=== PATIENT | male | born 1965 | race Caucasian/White ===

== ENCOUNTER 2018-03-12 08:27 | Emergency (ER) | payer BC ==
[2018-03-12 08:36] VITALS: BP 139/97
--- NOTE | 2018-03-12 09:54 | UC ---
Ear Complaint HPI - HPI Summary HPI Summary: The patient is a 52-year-old male with a one-week history of left ear pain. No URI symptoms. No fever or chills. He has been swimming recently. - History of Current Complaint Chief Complaint: UCEar Stated Complaint: EAR PAIN Time Seen by Provider: 03/12/18 09:34 Hx Obtained From: Patient Onset/Duration: Sudden Onset, Gradual Onset, Lasting Minutes Severity Initially: Mild Severity Currently: Mild Pain Intensity: 4 Pain Scale Used: 0-10 Numeric Associated Signs/Symptoms: Positive: Discharge, Hearing Loss - Allergies/Home Medications Allergies/Adverse Reactions: Allergies Allergy/AdvReac Type Severity Reaction Status Date / Time No Known Allergies Allergy Verified 03/12/18 08:36 PMH/Surg Hx/FS Hx/Imm Hx Previously Healthy: Yes - Surgical History Surgical History: None - Family History Known Family History: Positive: Hypertension, Diabetes - Social History Alcohol Use: Daily Substance Use Type: Marijuana Smoking Status (MU): Former Smoker Review of Systems Constitutional: Negative Skin: Negative Eyes: Negative ENT: Ear Ache Respiratory: Negative Cardiovascular: Negative Gastrointestinal: Negative Genitourinary: Negative Motor: Negative Neurovascular: Negative Musculoskeletal: Negative Neurological: Negative Psychological: Negative Is Patient Immunocompromised?: No All Other Systems Reviewed And Are Negative: Yes Physical Exam Triage Information Reviewed: Yes Appearance: Well-Appearing, No Pain Distress, Well-Nourished Vital Signs: Initial Vital Signs Temp 97 F 03/12/18 08:32 Pulse 76 03/12/18 08:32 Resp 15 03/12/18 08:32 BP 139/97 03/12/18 08:32 Pulse Ox 100 03/12/18 08:32 Vital Signs Reviewed: Yes ENT: Positive: TMs normal, Other - Left tragal tenderness/left EAC swollen. Negative: Hearing grossly normal, Tonsillar swelling, Tonsillar exudate, Muffled voice, Hoarse voice Dental Exam: Normal Neck exam: Normal Respiratory: Positive: Lungs clear, Normal breath sounds, No respiratory distress, No accessory muscle use Cardiovascular: Positive: RRR, No Murmur Musculoskeletal: Positive: ROM Intact, No Edema Neurological Exam: Normal Neurological: Positive: Alert Psychological Exam: Normal Skin Exam: Normal Ear Complaint Course/Dx - Differential Dx/Diagnosis Provider Diagnoses: left otitis externa Discharge - Sign-Out/Discharge Documenting (check all that apply): Discharge/Admit/Transfer - Discharge Plan Condition: Stable Disposition: HOME Prescriptions: Neomyc/Polym/HC 1% OTIC SUSP* [Cortisporin Otic Susp 1%*] 4 drop LEFT EAR QID 7 Days #1 btl Patient Education Materials: Otitis Externa (ED) Referrals: Emily Cramer MD [Primary Care Provider] - 7 Days (if not better) Additional Instructions: recheck for new or worsening symptoms - Billing Disposition and Condition Condition: STABLE Disposition: Home
== END 2018-03-12 09:52 | disposition home or self-care (01) ==
LOC: UCEAST 08:27
DX: H60.92 Unspecified otitis externa, left ear (principal); Z87.891 Personal history of nicotine dependence
CPT/HCPCS: 99211; G0463

== ENCOUNTER 2018-03-17 15:37 | Inpatient (IN) | payer BC ==
[2018-03-17] MEDS ORDERED: diPHENhydraMINE IV* 50 MG/ML 1 ml VIAL (BENADRYL) IV ONE (15:59)
[2018-03-17] MEDS ORDERED: Metoclopramide IV* 5 MG/ML 2 ML VIAL IV ONE (15:59)
[2018-03-17] MEDS ORDERED: NS 0.9% 1000 ML* 1,000 ML IV ONE (15:59)
[2018-03-17] MEDS ORDERED: Ketorolac INJ* 30 MG/ML 1 ML VIAL IV PUSH ONE (15:59)
[2018-03-17 16:24] LABS: ABS Basophils 0 10^3/ul (0-0.2); ABS Eosinophils 0 10^3/ul (0-0.6); ABS Lymphocytes 0.4 10^3/ul (1.0-4.8); ABS Monocytes 0.2 10^3/ul (0-0.8); ABS Neutrophils 2.2 10^3/ul (1.5-7.7); ABS Nucleated RBC 0 10^3/ul; Eosinophil % 0.1 % (0-6); Hematocrit 42 % (42-52); Hemoglobin 14.9 g/dl (14.0-18.0); Lymphocyte % 12.8 % (25-47); Mean Corpuscular HGB Conc 36 g/dl (31-36); Mean Corpuscular Hemoglobin 29 pg (27-31); Mean Corpuscular Volume 83 fL (80-94); Mean Platelet Volume 9.2 um3 (7.4-10.4); Nucleated Red Blood Cells % 0; Platelet Count 71 10^3/ul (150-450); Red Blood Count 5.06 10^6/ul (4.00-5.40); Red Cell Distribution Width 13 % (10.5-15); White Blood Count 2.7 10^3/ul (3.5-10.8)
[2018-03-17 16:30] LABS: EGFR Non-African American 97.3 (>60)
--- NOTE | 2018-03-17 16:51 | RAD ---
INDICATION: Fever and headache. COMPARISON: There are no prior studies available for comparison. TECHNIQUE: Contiguous axial sections of the brain were obtained from the skull base to the vertex without contrast. FINDINGS: The ventricles, cisterns and sulci are within normal limits. No significant focal abnormality or mass effect is seen. There is no evidence for hemorrhage. There is a 1 cm nodular density within the right maxillary sinus consistent with a polyp or mucous retention cyst. The visualized portion of the paranasal sinuses and mastoid air cells otherwise appear clear. IMPRESSION: NO EVIDENCE FOR ACUTE INTRACRANIAL ABNORMALITY.
--- NOTE | 2018-03-17 16:57 | RAD ---
INDICATION: Headache and fever. COMPARISON: There are no prior studies available for comparison. TECHNIQUE: Contiguous axial sections of the axial images of the sinuses were obtained and reconstructed in the coronal and sagittal planes. FINDINGS: The frontal and sphenoid sinuses appear clear. There is mild mucosal thickening within the ethmoid air cells. There is a 1 cm nodular density in the right maxillary sinus consistent with a polyp or mucous retention cyst. The ostiomeatal complexes appear patent on both sides. There is mild to moderate deviation of the nasal septum toward the right side. The nasal passageways were otherwise clear. The mastoid air cells appear clear. There is mild prominence of the tonsils bilaterally. IMPRESSION: 1. MILD MUCOSAL THICKENING WITHIN THE ETHMOID SINUSES, THE SINUSES WERE OTHERWISE CLEAR. 2. 1 CM NODULE WITHIN THE RIGHT MAXILLARY SINUS CONSISTENT WITH A POLYP OR MUCOUS RETENTION CYST. 3. NASAL SEPTAL DEVIATION.
[2018-03-17] MEDS ORDERED: Iohexol 350* (CONTRAST) 500 ML MDV IV ONE (18:01)
[2018-03-17] MEDS ORDERED: cefTRIAXone(*) 2 GM in NS 0.9% 100 ML* 100 ML IVPB ONE (18:07)
[2018-03-17] MEDS ORDERED: Morphine VIAL* 4 MG/ML VIAL (1 ml vial) IV ONE (18:07)
[2018-03-17 18:14] LABS: Urine Appearance Clear; Urine Blood 1+ (Negative); Urine Color Amber; Urine Ketones Trace (Negative); Urine Protein 2+(100 mg/dL) (Negative); Urine Specific Gravity 1.021 (1.010-1.030); Urine Urobilinogen Positive (Negative)
[2018-03-17] MEDS ORDERED: Lidocaine 2% EPI 1:200000 MPF*10-20 ML VIAL ONE (18:16)
[2018-03-17] MEDS ORDERED: Lidocaine 1%* 5 ML VIAL INJ ONE (18:16)
[2018-03-17] MEDS ORDERED: Lidocaine 1%* 5 ML VIAL ONE (18:18)
[2018-03-17] MEDS ORDERED: DOXYcycline CAP(*) 100 MG PO ONE (18:26)
[2018-03-17] MEDS ORDERED: Ondansetron INJ* 2 MG/ML VIAL IV PRN (18:40)
[2018-03-17] MEDS ORDERED: Al Hydrox/Mg Hydrox/Simet LIQ* 30 ML UDC PO PRN (18:40)
[2018-03-17] MEDS ORDERED: Acetaminophen TAB* 325 MG PO PRN (18:40)
[2018-03-17] MEDS ORDERED: Senna TAB PO PRN (18:40)
[2018-03-17] MEDS ORDERED: Docusate CAP* 100 MG PO PRN (18:40)
--- NOTE | 2018-03-17 18:52 | RAD ---
INDICATION: Headache and fever. COMPARISON: Comparison is made with a prior noncontrast CT of the brain obtained earlier today. TECHNIQUE: A CT angiogram of the head was performed following intravenous injection of 60 ml of Omnipaque 350 nonionic contrast. Contiguous axial sections were obtained from the skull base through the vertex. Images were reconstructed in the coronal and sagittal planes and in a 3-D volume rendered format. FINDINGS: CTA BRAIN: The internal carotid, anterior and middle cerebral arteries appear patent without evidence for high-grade stenosis or occlusion. There is a dominant left vertebral artery. The vertebral, basilar and posterior cerebral arteries appear patent without evidence for high-grade stenosis or occlusion. No aneurysm or vascular malformation is seen. IMPRESSION: NO EVIDENCE FOR ANEURYSM.
[2018-03-17] MEDS ORDERED: Thiamine IV* 100 MG/ML 2 ML VIAL IM ONE (18:55)
--- NOTE | 2018-03-17 19:34 | ED ---
Art Metzger Devyn, scribed for Harish Kimball MD on 03/17/18 at 1628 . Headache - HPI Summary HPI Summary: This patient is a 52 year old M presenting to [facility] with a chief complaint of intermittent, sharp headaches since 3 days ago. The patient rates the pain 10/ 10 in severity. Patient reports body aches, diaphoresis, intermittent fevers, dark urine. Patient denies rash, tick bite, sore throat, sinus pain, injury to the area, neck pain, visual problems, difficulty urinating, discharge, rash. 5 days ago the pt went to urgent care for fluid in his ear, which is still somewhat present. Pt was given drops for the fluid in his ear. Pt has taken Advil for the pain but it does not help. SHx of regular drinking, denies smoking. No FHx of migraines. - History Of Current Complaint Chief Complaint: EDHeadache Stated Complaint: FEVER/HEADACHE Time Seen by Provider: 03/17/18 15:43 Hx Obtained From: Patient Onset/Duration: Started days ago - 3 days ago, Still Present Initially Headache Was: Severe Currently Pain Is: Mild Timing: Intermittent, Lasting: - hours Character: Sharp Location of Headache: Other: - right side - Allergies/Home Medications Allergies/Adverse Reactions: Allergies Allergy/AdvReac Type Severity Reaction Status Date / Time No Known Allergies Allergy Verified 03/17/18 15:40 PMH/Surg Hx/FS Hx/Imm Hx History: Denies: Hx Dialysis Neurological History: Denies: Hx Migraine Infectious Disease History: No Infectious Disease History: Denies: Traveled Outside the [place] in Last 30 Days - Family History Known Family History: Positive: Hypertension, Diabetes Negative: Other - migraines - Social History Alcohol Use: Daily Alcohol Amount: 2 glassess of wine 5x weekly Substance Use Type: Reports: Marijuana Hx Tobacco Use: No Smoking Status (MU): Former Smoker Review of Systems Positive: Fever, Skin Diaphoresis, Other - aches Positive: Other - some fluid in right ear. Negative: Sore Throat Positive: other - dark urine. Negative: dysuria, hematuria Negative: Rash Positive: Headache All Other Systems Reviewed And Are Negative: Yes Physical Exam - Summary Physical Exam Summary: Appearance: Well appearing, no pain distress Skin: warm, dry, reflects adequate perfusion Head/face: nontender temporal arteries Eyes: EOMI, [place] ENT: exudate on the left ear. No mastoid redness, tenderness. Right ear normal. Globes soft, throat clear. Neck: supple, non-tender Respiratory: CTA, breath sounds present Cardiovascular: RRR, pulses symmetrical. No temporal artery tenderness. Abdomen: non-tender, soft Bowel Sounds: present Musculoskeletal: normal, strength/ROM intact Neuro: normal, sensory motor intact, A&Ox3 Triage Information Reviewed: Yes Vital Signs On Initial Exam: Initial Vitals Temp Pulse Resp BP Pulse Ox 98.0 F 93 17 133/84 99 03/17/18 15:38 03/17/18 15:38 03/17/18 15:38 03/17/18 15:38 03/17/18 15:38 Vital Signs Reviewed: Yes Procedures - Lumbar Puncture Lumbosacral Joint Position: Sitting Aseptic Technique: Lidocaine Anesthesia Used: 1.0% Lido Spinal Needle Used: 22 Gauge - L3 L4 Lumbar Puncture Note: L4 L5. Fluid was clear. Dressed with a bandaid. 6 cc of CSF. Diagnostics - Vital Signs Vital Signs Temp Pulse Resp BP Pulse Ox 03/17/18 15:38 98.0 F 93 17 133/84 99 - Laboratory Lab Results: Lab Results 03/17/18 03/17/18 03/17/18 Range/Units 16:09 16:09 17:07 WBC 2.7 L (3.5-10.8) 10^3/ul RBC 5.06 (4.00-5.40) 10^6/ul Hgb 14.9 (14.0-18.0) g/dl Hct 42 (42-52) % MCV 83 (80-94) fL MCH 29 (27-31) pg MCHC 36 (31-36) g/dl RDW 13 (10.5-15) % Plt Count 71 L (150-450) 10^3/ul MPV 9.2 (7.4-10.4) um3 Neut % (Auto) 79.1 (38-83) % Lymph % (Auto) 12.8 L (25-47) % [place] % (Auto) 7.6 H (0-7) % Eos % (Auto) 0.1 (0-6) % Baso % (Auto) 0.4 (0-2) % Absolute Neuts (auto) 2.2 (1.5-7.7) 10^3/ul Absolute Lymphs (auto) 0.4 L (1.0-4.8) 10^3/ul Absolute Monos (auto) 0.2 (0-0.8) 10^3/ul Absolute Eos (auto) 0 (0-0.6) 10^3/ul Absolute Basos (auto) 0 (0-0.2) 10^3/ul Absolute Nucleated RBC 0 10^3/ul Nucleated RBC % 0 Hem Pathologist Commnt Pending Sodium 136 (135-145) mmol/L Potassium 3.6 (3.5-5.0) mmol/L Chloride 104 (101-111) mmol/L Carbon Dioxide 24 (22-32) mmol/L Anion Gap 8 (2-11) mmol/L BUN 12 (6-24) mg/dL Creatinine 0.83 (0.67-1.17) mg/dL Est GFR ( Amer) 117.7 (>60) Est GFR (Non-Af Amer) 97.3 (>60) BUN/Creatinine Ratio 14.5 (8-20) Glucose 109 H (70-100) mg/dL Calcium 8.3 L (8.6-10.3) mg/dL Total Bilirubin 1.00 (0.2-1.0) mg/dL Direct Bilirubin 0.30 H (0.03-0.18) mg/dL Indirect Bilirubin 0.7 (0.3-1.0) mg/dL AST 74 H (13-39) U/L ALT 60 H (7-52) U/L Alkaline Phosphatase 105 H (34-104) U/L Total Creatine Kinase 241 H (10-223) U/L C-Reactive Protein 136.95 H (<8.01) mg/L Total Protein 5.8 L (6.4-8.9) g/dL Albumin 3.4 (3.2-5.2) g/dL Globulin 2.4 (2-4) g/dL Albumin/Globulin Ratio 1.4 (1-3) Urine Color Urine Appearance Urine pH (5-9) Ur Specific [place] (1.010-1.030) Urine Protein (Negative) Urine Ketones (Negative) Urine Blood (Negative) Urine Nitrate (Negative) Urine Bilirubin (Negative) Urine Urobilinogen (Negative) Ur Leukocyte Esterase (Negative) Urine WBC (Auto) (Absent) Urine RBC (Auto) (Absent) Urine Bacteria (Absent) Urine Glucose (Negative) CSF Glucose CSF Total Protein (15-45) mg/dL Influenza A (Rapid) Negative (Negative) Influenza B (Rapid) Negative (Negative) 03/17/18 03/17/18 Range/Units 18:00 19:05 WBC (3.5-10.8) 10^3/ul RBC (4.00-5.40) 10^6/ul Hgb (14.0-18.0) g/dl Hct (42-52) % MCV (80-94) fL MCH (27-31) pg MCHC (31-36) g/dl RDW (10.5-15) % Plt Count (150-450) 10^3/ul MPV (7.4-10.4) um3 Neut % (Auto) (38-83) % Lymph % (Auto) (25-47) % [place] % (Auto) (0-7) % Eos % (Auto) (0-6) % Baso % (Auto) (0-2) % Absolute Neuts (auto) (1.5-7.7) 10^3/ul Absolute Lymphs (auto) (1.0-4.8) 10^3/ul Absolute Monos (auto) (0-0.8) 10^3/ul Absolute Eos (auto) (0-0.6) 10^3/ul Absolute Basos (auto) (0-0.2) 10^3/ul Absolute Nucleated RBC 10^3/ul Nucleated RBC % Hem Pathologist Commnt Sodium (135-145) mmol/L Potassium (3.5-5.0) mmol/L Chloride (101-111) mmol/L Carbon Dioxide (22-32) mmol/L Anion Gap (2-11) mmol/L BUN (6-24) mg/dL Creatinine (0.67-1.17) mg/dL Est GFR ( Amer) (>60) Est GFR (Non-Af Amer) (>60) BUN/Creatinine Ratio (8-20) Glucose (70-100) mg/dL Calcium (8.6-10.3) mg/dL Total Bilirubin (0.2-1.0) mg/dL Direct Bilirubin (0.03-0.18) mg/dL Indirect Bilirubin (0.3-1.0) mg/dL AST (13-39) U/L ALT (7-52) U/L Alkaline Phosphatase (34-104) U/L Total Creatine Kinase (10-223) U/L C-Reactive Protein (<8.01) mg/L Total Protein (6.4-8.9) g/dL Albumin (3.2-5.2) g/dL Globulin (2-4) g/dL Albumin/Globulin Ratio (1-3) Urine Color [place] Urine Appearance Clear Urine pH 5.0 (5-9) Ur Specific [place] 1.021 (1.010-1.030) Urine Protein 2+(100 mg/dl) A (Negative) Urine Ketones Trace A (Negative) Urine Blood 1+ A (Negative) Urine Nitrate Negative (Negative) Urine Bilirubin Negative (Negative) Urine Urobilinogen Positive A (Negative) Ur Leukocyte Esterase Negative (Negative) Urine WBC (Auto) 1+(6-10/hpf) A (Absent) Urine RBC (Auto) 2+(6-10/hpf) A (Absent) Urine Bacteria Absent (Absent) Urine Glucose Negative (Negative) CSF Glucose Pending CSF Total Protein 41 (15-45) mg/dL Influenza A (Rapid) (Negative) Influenza B (Rapid) (Negative) Result Diagrams: 03/17/18 16:09 03/17/18 16:09 Lab Statement: Any lab studies that have been ordered have been reviewed, and results considered in the medical decision making process. - CT Sinuses CT Interpretation Completed By: Radiologist - IMPRESSION: 1. MILD MUCOSAL THICKENING WITHIN THE ETHMOID SINUSES, THE SINUSES WERE OTHERWISE CLEAR. 2. 1 CM NODULE WITHIN THE RIGHT MAXILLARY SINUS CONSISTENT WITH A POLYP OR MUCOUS RETENTION CYST. 3. NASAL SEPTAL DEVIATION. ER Physician reviewed this report Brain CT Interpretation Completed By: Radiologist - IMPRESSION: NO EVIDENCE FOR ACUTE INTRACRANIAL ABNORMALITY. ER Physician reviewed this report. Head CT Interpretation Completed By: Radiologist - IMPRESSION: NO EVIDENCE FOR ANEURYSM. ER Physician reviewed this report. Headache Course/Dx - Course Course Of Treatment: Patient presents with splitting headache and history of fevers. No objectively measured temperature. No temperature here. Wbc, platelets low and LFTs elevated. Possible tickborne illness to include ehrlichiosis. CT brain, sinuses negative. Concern for bleeding so CTA was performed. A lumbar puncture was performed after that. Fluid returned cleared. Discussed with hospitalist who evaluated in the ER and will admit. - Diagnoses Differential Diagnosis/HQI/PQRI: Other - Encephalitis/meningitis, tickborne illness, occult sepsis, bacteremia, venous sinus thrombosis, sinusitis, subarachnoid hemorrhage Provider Diagnoses: Headache, Thrombocytopenia, Encephalitis - Physician Notifications Discussed Care Of Patient With: Linnea Neves Time Discussed With Above Provider: 17:55 Instructed by Provider To: Admit As Inpatient - Critical Care Time Critical Care Time: 30-74 min - CCT is EXCLUSIVE of separately billable procedures. Discharge - Sign-Out/Discharge Documenting (check all that apply): Discharge/Admit/Transfer - admit - Discharge Plan Condition: Fair Disposition: ADMITTED TO [facility] - Billing Disposition and Condition Condition: FAIR Disposition: Admitted to [facility] The documentation as recorded by the Art bustos Devyn accurately reflects the service I personally performed and the decisions made by Rehana choudhary Kirk, MD.
--- NOTE | 2018-03-17 20:08 | HP ---
CC: Emily Cramer MD * HISTORY AND PHYSICAL: DATE OF ADMISSION: 03/17/18 TIME OF EVALUATION: 1800. PRIMARY CARE PHYSICIAN: Emily Cramer MD CHIEF COMPLAINT: Fever and headache. HISTORY OF PRESENT ILLNESS: This is a 52-year-old male with an unremarkable past medical history, who presents to the emergency room with several days of headache and fever. The patient states he was diagnosed with swimmer's ear when he was seen in Urgent Care on 03/12/18. He was diagnosed with an ear infection and was given antibiotic drops. His symptoms seemed to have improved ; however, on , 03/14/18, the patient developed right-sided headache with fever, chills, sweating. He states his headache comes and goes, but when it comes, it is a throbbing right- sided headache. Tylenol and ibuprofen gave it some relief. Nothing seems to make it worse. He denies any rash. No worsening joint pain. No shortness of breath. No nausea, vomiting, diarrhea. No cough or abdominal pain. No urinary symptoms. As mentioned, his ear pain seems to have improved. He has no known history of a tick bite, but he does work as a chemist physical. No recent travel. He went to [place] back in October. No recent antibiotic use other than the antibiotic drops for his ear. Otherwise , review of systems is negative. In the emergency room, the patient had labs, imaging. He was given a liter of fluids, morphine 4 mg, Reglan, Toradol, and ceftriaxone 2 g and was referred to the hospitalist service for further evaluation. PAST MEDICAL HISTORY: Unremarkable. MEDICATIONS: The patient has been prescribed Cortisporin Otic suspension 1% four drops to the left ear 4 times a day. ALLERGIES: No known drug allergies. FAMILY HISTORY: Reviewed and noncontributory. 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 He has no history of smoking. He does drink about three-fourths of a bottle 4 to 5 nights per week. Occasional marijuana use. His healthcare proxy is his sister, Ashley Holguin. CODE STATUS: Full code. REVIEW OF SYSTEMS: A 14-point review of systems as mentioned in the HPI, otherwise negative. PHYSICAL EXAMINATION GENERAL: No acute distress, resting comfortably with his friend at the bedside. VITAL SIGNS: Temp 98, pulse rate 88, respiratory rate 18, oxygen saturation 98 % on room air, blood pressure 154/92. HEENT: Head: Normocephalic. The patient does not have any reproducible head tenderness. Pupils are equal and reactive, anicteric. Oropharynx: Mucous membranes are moist. Ears: Bilateral TMs unremarkable and external canals unremarkable. No mastoid tenderness. NECK: Supple. No nuchal rigidity. No tenderness. RESPIRATORY: Clear to auscultation. No wheezing, rhonchi, or rales. CARDIAC: Regular rate and rhythm. Soft systolic murmur heard throughout. ABDOMEN: Soft, nontender, nondistended. EXTREMITIES: No clubbing, cyanosis, or edema. +2 DPs. NEUROLOGICAL: Alert and oriented x3. No gross focal neurologic deficits. DERM: No lesions or rashes noted. DIAGNOSTIC STUDIES/LAB DATA: White count 2.7, hemoglobin 14.9, hematocrit 42, platelets 71. Sodium 136, potassium 3.6, chloride 104, bicarb 24, BUN 12, creatinine 0.83, glucose 109, calcium 8.3. AST 74, ALT 60, alk phos 105. Total CK 241. CRP 176. Urine shows trace ketones with some blood. Negative flu. Head CT: No evidence for acute intracranial abnormality. Sinuses CT shows mild mucosal thickening with ethmoid sinus, the sinuses were otherwise clear. A 1-cm nodule within the right maxillary sinus consistent with a polyp or mucous retention cyst, nasal septal deviation. Head CTA pending. ASSESSMENT AND PLAN: This is a 52-year-old male with an unremarkable past medical history, who presents to the emergency room with 4 days of fever and right-sided headache. 1. Fever and right-sided headache. The patient's history and physical are concerning for tick-borne disease with his lab findings as well. 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 Dr. Kimball is planning to do a lumbar puncture. Plan: We will order blood cultures, add on a tick-borne panel, cannot rule out ehrlichiosis as well, and follow up on the cerebrospinal fluid. We will add doxycycline in addition to ceftriaxone. If there is concern with his cerebrospinal fluid, we will add vancomycin, but given the presentation, less likely bacterial meningitis in the absence of nuchal rigidity and no leukocytosis or actual documented fever here in the emergency room. Consider Infectious Disease consultation. 2. Alcohol use. The patient drinks three-quarters of a bottle of wine 4 to 5 nights per [address] We will place him on the [facility] protocol for now. FEN: Regular diet. DVT prophylaxis: The patient scores moderate risk. We will place him on heparin subcu t.i.d. Code status: Full Code PATIENT TIME: Greater than 45 minutes was spent doing history and physical, more than half the time was spent in direct patient contact. [id number]/[facility] #: [id number] JOSE
[2018-03-17] MEDS: HYDROcodone/ACETAMIN 5-325 MG* 1 TAB PO PRN (21:13)
[2018-03-17] MEDS: Heparin VIAL(*) 5000 UNITS/ML VIAL (FIVE THOUSAND) SUBCUT SCH (21:14)
[2018-03-17] MEDS: NS 0.9% 1000 ML* 1,000 ML IV SCH (21:17)
[2018-03-17] MEDS: Ketorolac INJ* 30 MG/ML 1 ML VIAL IV PUSH PRN (22:16)
[2018-03-18] MEDS: DOXYcycline CAP(*) 100 MG PO SCH ×2 (05:26→07:30)
[2018-03-18] MEDS: NS 0.9% 1000 ML* 1,000 ML IV SCH (05:27)
[2018-03-18] MEDS: Heparin VIAL(*) 5000 UNITS/ML VIAL (FIVE THOUSAND) SUBCUT SCH ×2 (05:30→13:17)
[2018-03-18] MEDS: HYDROcodone/ACETAMIN 5-325 MG* 1 TAB PO PRN (05:30)
[2018-03-18 06:07] LABS: EGFR Non-African American 83.3 (>60)
[2018-03-18 06:10] LABS: ABS Basophils 0 10^3/ul (0-0.2); ABS Eosinophils 0 10^3/ul (0-0.6); ABS Lymphocytes 0.6 10^3/ul (1.0-4.8); ABS Monocytes 0.4 10^3/ul (0-0.8); ABS Neutrophils 1.3 10^3/ul (1.5-7.7); ABS Nucleated RBC 0 10^3/ul; Hematocrit 39 % (42-52); Hemoglobin 13.5 g/dl (14.0-18.0); Mean Corpuscular HGB Conc 35 g/dl (31-36); Mean Corpuscular Hemoglobin 29 pg (27-31); Mean Corpuscular Volume 84 fL (80-94); Mean Platelet Volume 9.5 um3 (7.4-10.4); Platelet Count 65 10^3/ul (150-450); Red Blood Count 4.66 10^6/ul (4.00-5.40); Red Cell Distribution Width 13 % (10.5-15); White Blood Count 2.3 10^3/ul (3.5-10.8)
[2018-03-18] MEDS ORDERED: cefTRIAXone(*) 2 GM in NS 0.9% 100 ML* 100 ML IVPB SCH (06:30)
[2018-03-18 06:45] LABS: ABS Neutrophils 1.1 10^3/ul (1.5-7.7); Monocytes % 12 % (0-7)
[2018-03-18] MEDS ORDERED: Folic Acid TAB* 1 MG PO SCH (09:00)
[2018-03-18] MEDS ORDERED: Thiamine TAB* 100 MG TAB PO SCH (09:00)
[2018-03-18] MEDS ORDERED: Multivitamins/Minerals TAB PO SCH (09:00)
--- NOTE | 2018-03-18 11:54 | CONS ---
DATE OF CONSULTATION: 03/18/2018. REQUESTING PHYSICIAN: Dr. Nair. CONSULTING SERVICE: Infectious Disease. REASON FOR CONSULTATION: Fever, leukopenia. IMPRESSION: Acute onset of fever, severe headache, leukopenia, thrombocytopenia , transaminitis. Lumbar puncture shows no white cells. This time of year, considering his outdoor exposure, anaplasmosis is the most common etiology. Other infections including viral are considerations, but much less likely. He has no rash to suggest Lyme. He is feeling much better on Doxycycline. RECOMMENDATIONS: Doxycycline 100 mg by mouth twice a day for 14 days. He has had a tick PCR panel sent which included anaplasma PCR which I will follow-up with as an outpatient. HISTORY OF PRESENT ILLNESS: This is a 52-year-old man with headache and fever that developed the end of last week. He suffered through it for three days and then finally came to the emergency room on the . His influenza PCR was negative. He had a white blood cell count of 2.7, creatinine of 0.8, ALT of 60 which is down to 53 today, CRP is 140. Urinalysis showed blood, no leukocyte esterase or nitrates. His white blood cell count today is 2.3, platelets are 65, 000, and absolute neutrophil count is 1300. He had a fever overnight to 38.9. He started Doxycycline yesterday. This morning his headache is gone. He has a little bit of muscle aches, but his fever and chills are resolved as well. He feels almost back to his usual self. A lumbar puncture showed one white cell. Increased glucose and normal protein. He had a brain CT that was negative. PAST MEDICAL HISTORY: Obesity. MEDICATIONS: 1. Tylenol. 2. Doxycycline 100 mg by mouth twice daily. 3. Folic acid. 4. Heparin subcutaneous injection. 5. Ketorolac as needed. 6. Ceftriaxone 2 gm every 12 hours. 7. Senna. 8. Thiamine. ALLERGIES: No known drug allergies. FAMILY HISTORY: No recurrent infection. SOCIAL HISTORY: He lives in [place]. 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 He spends a lot of time outdoors. No pets. No sick contacts. No travel out of the area. REVIEW OF SYSTEMS: All negative to 14 point review of systems, except as noted above in the history of present illness. PHYSICAL EXAM: General: He is awake, not in distress. Vital Signs: Temperature 37, heart rate 80, respiratory rate 15, blood pressure 130/80, oxygen saturation 98 percent on room air. HEENT: There is no conjunctival hemorrhage. Oropharynx without lesions. Neck: Supple without mass. Heart: Regular rate and rhythm without murmurs, rubs, or gallops. Lungs: Clear to auscultation bilaterally. Abdomen: Soft, nontender, nondistended. There are bowel sounds present. Skin: There is no rash or splinter hemorrhage. Musculoskeletal: There is no spine tenderness of palpation or joint synovitis. Lymph Nodes: There is no inguinal, axillary, epitrochlear, or lymphadenopathy. Neurologic: He is oriented times three, follows all commands. LABORATORY DATA: White blood cell count 2.3, hemoglobin 13.5, platelets 65, creatinine 0.9, ALT 53. Please see impressions and recommendations as outlined above which I have discussed with Dr. Nair. Thank you for asking me to see Mr. Holguin in consultation. [id number]/[facility] #: [id number] [facility]
[2018-03-18] MEDS: Ketorolac INJ* 30 MG/ML 1 ML VIAL IV PUSH PRN (13:51)
[2018-03-18 15:06] VITALS: BP 122/71
--- NOTE | 2018-03-19 10:52 | DS ---
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 MEDICATIONS AT DISCHARGE: 1. Doxycycline 100 mg p.o. b.i.d. for a total of 14 days. 2. Ibuprofen 800 mg b.i.d. p.r.n. pain or headache. FOLLOWUP: At discharge, the patient is recommended to follow up with his primary care provider in 4 to 7 days. The patient is recommended to call Dr. Sandy's office and make an appointment in a week for follow up. LAB WORK PENDING AT THE TIME OF DISCHARGE: Include blood cultures, CSF cultures, CSF with mild IgG, herpes simplex virus PCR from CSF, as well as Lyme disease serology and tic-borne panel serology. LABORATORY DATA PERFORMED DURING THE HOSPITAL STAY: Included: On 03/18/18, white blood cell count 12.3, hemoglobin of 13.5, hematocrit of 39, and platelets of 67. Differential included 3 bands, 37 lymphocytes, 12 monocytes. Chemistry, on 03/18/18 showed sodium of 138, potassium 4.1, chloride of 106, carbon dioxide of 27, BU N 11, creatinine 0.95. Liver function tests showed mild transaminitis with an AST of 58, ALT of 53, alkaline phosphatase of 82, bilirubin was normal at 0.7 on admission. Cerebrospinal fluid analysis showed colorless clear fluid with 0 white blood cells, 1 red blood cells . CSF glucose was 72, CSF total protein was 41. Influenza testing was negative. CSF Gram-stain was negative for organisms. CT angiogram of the head obtained on 03/17/18, impression, "No evidence for aneurysm". HOSPITALIZATION COURSE: Tonya Holguin is a 52-year-old male who has a history of recent problems with swimmer's ear on the left. He received drops for it at [facility] on 03/12/18. His ear had been getting better, but subsequently he developed fevers and severe right-sided temporal headach e for a few days and he came into the ED for evaluation. Here he had a fever of 102 degrees. He had mild leukopenia and transaminitis. The patient had a lumbar puncture performed in the emergency depa rtment, which was grossly unremarkable. He was placed on overnight observation and treated with broa d spectrum antibiotics that included ceftriaxone and doxycycline. Dr. 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 The patient did very well with treatment with doxycycline and he is going to be discharged with recommendations of taking doxycycline for another [address] Sandy's office will follow up with the patient wit h remaining tests that are still pending at the time of discharge. PHYSICAL EXAMINATION AT DISCHARGE: Not changed from admission. Please note that the patient has "mi nimal headache" by the time of discharge. He requested ibuprofen on a p.r.n. basis, which was prescr ibed to him. Please note that this is a short summary of the patient's hospitalization, please refer to further me dical records for details. TIME SPENT: Approximately 35 minutes was spent on the patient's discharge. [id number]/[facility] #: [id number]
== END 2018-03-18 16:45 | disposition home or self-care (01) | DRG 724 ==
LOC: ED 15:37 → MED 19:21
PROVIDERS: ADMIT Pediatrics; ATTEND Internal Medicine
DX: A77.49 Other ehrlichiosis (principal); R74.0 Nonspecific elevation of levels of transaminase and lactic acid dehydrogenase [LDH]; D72.819 Decreased white blood cell count, unspecified; G44.89 Other headache syndrome; R50.9 Fever, unspecified; F10.10 Alcohol abuse, uncomplicated; E66.9 Obesity, unspecified; Z68.32 Body mass index [BMI] 32.0-32.9, adult
CPT/HCPCS: 36415; 70450; 70486; 70496; 80048; 80053; 80076; 81003; 81015; 82550; 82945; 83605; 84157; 85025; 85060; 86140; 86618; 86788; 86789; 87040; 87070; 87086; 87205; 87529; 87798; 89051; 99284; A9270-GY; J0696; J1200; J1644; J1885; J2270; J2765; J3411; Q9967